=== PATIENT | male | born 1975 | race Caucasian/White ===

== ENCOUNTER 2022-02-12 09:35 | Outpatient (CLI) | payer OTHER ==
[~2022-02-12] VITALS: Ht 188 cm; Wt 91.2 kg
[2022-02-12] MEDS ORDERED: CETI10TA17 PO (14:12)
[2022-02-12] MEDS ORDERED: BUPR1TAB45 SL (14:12)
[2022-02-12] MEDS ORDERED: MONT-40 PO (14:12)
[2022-02-12] MEDS ORDERED: FLUT9.9S NS (14:12)
== END 2022-02-12 14:16 ==
LOC: PREOP 09:35
PROVIDERS: ATTEND Surgery
DX: Z01.818 Encounter for other preprocedural examination (principal); Z80.0 Family history of malignant neoplasm of digestive organs

== ENCOUNTER 2022-03-28 11:12 | Day surgery (SDC) | payer MEDICAID ==
[~2022-03-28] VITALS: Ht 185 cm; Wt 91.2 kg
[~2022-03-28 11:12] MED LIST: BUPR1TAB45 SL; CETI10TA17 PO; FLUT9.9S NS; MONT-40 PO
[2022-03-28] MEDS ORDERED: LACTATED RINGERS 1,000 ML IV STA (11:24)
[2022-03-28 11:29] VITALS: BP 112/78
[2022-03-28] MEDS ORDERED: HURRICAINE EXT TUBE (BENZOCAINE) XX PRN (11:30)
[2022-03-28] MEDS ORDERED: HURRICAINE EXT TUBE (BENZOCAINE) ONE (12:00)
[2022-03-28] MEDS ORDERED: LACTATED RINGERS 1,000 ML IV ONE (12:00)
[2022-03-28] MEDS ORDERED: PROPOFOL INJECTION 50 ML IV ONE (14:36)
[2022-03-28] MEDS ORDERED: MIDAZOLAM 2 MG/2 ML (VERSED) VIAL ONE (14:36)
[2022-03-28 15:20] VITALS: BP 104/66
--- NOTE | 2022-03-28 15:20 | Discharge Inst-Simple/Standard ---
Discharge Inst-Standard Patient Instructions/Follow Up Plan of Care/Instructions/FU: 2 weeks Bianca Activity as Tolerated: Yes Discharge Diet: No Restrictions NISHA ACOSTA DO Mar 28, 2022 15:20
[2022-03-28 15:25] VITALS: BP 108/73
[2022-03-28] MEDS ORDERED: PANT40TA2 PO (15:26)
--- NOTE | 2022-03-28 15:28 | Progress Note-Post Operative ---
Post-Operative Progess Note Surgeon (s)/Juvenile Court Judge (s) Surgeon NISHA ACOSTA DO Juvenile Court Judge: na Pre-Operative Diagnosis family hx colon cancer, gerd Post-Operative Diagnosis ulcer neaer cardia, diverticulosis, mucosal change ileocecal valve, rectal polyp Procedure & Operative Findings Date of Procedure 03/28/22 Procedure Performed/Findings egd c biopsies, colonoscopy c hot bx polypectomy x 1 and cold biopsy ileocecal valve Anesthesia Type per inventory analyst Estimated Blood Loss Estimated blood loss (mL): none Specimens/Packing Specimens Removed antrum body linear ulceration near rectal polyp, ileocecal valve mucosal change NISHA ACOSTA DO Mar 28, 2022 15:28
[2022-03-28 15:45] VITALS: BP 115/78
[2022-03-28 15:53] VITALS: BP 115/78
--- NOTE | 2022-03-29 00:03 | OPERATIVE REPORT ---
DATE OF SERVICE: 03/28/2022 PREOPERATIVE DIAGNOSES: Gastroesophageal reflux disease, family history of colon cancer, screening colonoscopy. POSTOPERATIVE DIAGNOSES: Ulceration near the cardia, mucosal change of the ileocecal valve and rectal polyp. PROCEDURE: EGD with biopsies, colonoscopy with cold biopsy of the ileocecal valve and hot biopsy polypectomy of the rectal polyp. SURGEON: Nisha Valenzuela DO ANESTHESIA: Per DIET AIDE. ESTIMATED BLOOD LOSS: None. COMPLICATIONS: None. INDICATIONS: The patient is a 47-year-old male with GERD symptoms and family history of colon cancer. He understands risks and benefits of procedures and wished to proceed. Consent was signed in the chart. DESCRIPTION OF PROCEDURE: The patient was taken to endoscopy suite, placed in left lateral semi-recumbent position. A timeout was performed. Scope was inserted in the mouth, down the esophagus, stomach and into the duodenum without difficulty. There were no additional polyps, mass or ulcerations in the duodenum. Scope was then slowly retracted back in the stomach where it was further insufflated. No polyps, masses, or ulcerations within the antrum. Biopsy of the antrum was obtained. Scope was retroflexed noting linear ulcerations by the cardia, which biopsy was obtained. The scope was returned to its normal position and slowly withdrawn to the distal esophagus. Biopsy of the GE junction was obtained. No polyps, masses, or ulcerations. Scope was slowly retracted back until completely removed. The patient tolerated the procedure well without any complications. Digital rectal exam was performed. No palpable polyps, masses or ulcerations. Scope was inserted in the rectum and advanced all the way to the cecum with minimal difficulty. Prep was adequate, irrigation and suction. Scope was then slowly retracted in the ileocecal valve. Slight mucosal change, which cold biopsy of this area was obtained. Scope was then continually retracted back. No polyps, masses or ulcerations within the ascending, transverse, descending and sigmoid colon. Minimal amount of diverticulosis in the sigmoid colon. Scope was then continually retracted back to the rectum where a small polyp was present, which hot biopsy polypectomy was performed. Scope was retroflexed noting no other pathology. Scope was returned to its usual position and withdrawn until completely removed. The patient tolerated the procedure well without complications, taken to recovery room in stable condition. RECOMMENDATIONS: 1. Protonix 40 mg daily. We will see how his symptoms do. Await biopsy results. 2. Diverticulosis. We would recommend high fiber diet. The patient with a family history of colon cancer and polyp and a mucosal change at the ileum. We will await biopsy results. So, we will at least need to repeat colonoscopy in 5 years, may move it up depending upon pathology. Job ID: [id number] DocumentID: [id number] Dictated Date: 03/28/2022 15:25:39 Carbon Lamp Cleaner Date: 03/29/2022 00:00:00 Dictated By: NISHA VALENZUELA DO
--- NOTE | 2022-03-29 14:21 | Anesthesia-General Post-Op ---
MAC Significant Intra-Op Events Notes late entry 03/28/22 @ 1530 Patient Condition Mental Status/LOC: Same as Preop Cardiovascular: Satisfactory Nausea/Vomiting: Absent Respiratory: Satisfactory Pain: Controlled Complications: Absent Post Op Complications Complications None Follow Up Care/Instructions Patient Instructions None needed. Anesthesiology Discharge Order Discharge Order Patient is doing well, no complaints, stable vital signs, no apparent adverse anesthesia problems. No complications reported per nursing. JADA STARK CRNA Mar 29, 2022 14:21
== END 2022-03-28 15:53 | disposition home or self-care (01) ==
LOC: ENDO 11:12
PROVIDERS: ATTEND Surgery
DX: Z12.11 Encounter for screening for malignant neoplasm of colon (principal); K52.9 Noninfective gastroenteritis and colitis, unspecified; K62.1 Rectal polyp; K31.89 Other diseases of stomach and duodenum; K25.9 Gastric ulcer, unspecified as acute or chronic, without hemorrhage or perforation; K57.30 Diverticulosis of large intestine without perforation or abscess without bleeding; Z80.0 Family history of malignant neoplasm of digestive organs; K21.9 Gastro-esophageal reflux disease without esophagitis; F17.210 Nicotine dependence, cigarettes, uncomplicated; Z28.310 Unvaccinated for COVID-19